=== PATIENT | female | born 1980 | race Caucasian/White ===

== ENCOUNTER 2018-02-19 06:47 | Day surgery (SDC) | payer BC ==
[~2018-02-19 06:47] MED LIST: Lactated Ringers 1,000 ML IV SCH; Sodium Chloride 0.9% 10 ML Syringe FLUSH PRN
--- NOTE | 2018-02-19 08:14 | PCM.HPR ---
H & P Addendum review - H & P Addendum Review Date of Original H & P: 02/02/18 Date Reviewed: 02/19/18 Time Reviewed: 08:00 Patient was Examined: No Changes
[2018-02-19] MEDS ORDERED: fentaNYL 100 MCG/2 ML SDV IV ONE (08:24)
[2018-02-19] MEDS ORDERED: Propofol 200 MG/20 ML SDV IV ONE (08:24)
[2018-02-19] MEDS ORDERED: Ondansetron 4 MG/2 ML SDV IVPUSH ONE (08:24)
[2018-02-19] MEDS ORDERED: Lactated Ringers 1,000 ML IV ONE (08:24)
[2018-02-19] MEDS ORDERED: Midazolam 1 MG/ML 2 ML SDV IV ONE (08:24)
[2018-02-19] MEDS ORDERED: Rocuronium 100 MG/10 ML MDV IV ONE (08:24)
[2018-02-19] MEDS ORDERED: Ketorolac 30 MG/ML SDV IVPUSH ONE (08:24)
--- NOTE | 2018-02-19 09:05 | PCM.OPNOTE ---
- General Post-Op/Procedure Note Date of Surgery/Procedure: 02/19/18 Operative Procedure(s): Lap Angela Pre Op Diagnosis: Symptomatic Cholelithiasis Post-Op Diagnosis: Same Anesthesia Technique: General ET Tube Primary Surgeon: Diego Pardo Pathology: Gallbladder EBL in mLs: 5 Complications: None Condition: Good
[2018-02-19] MEDS ORDERED: Acetaminophen/HYDROcodone 325-5 MG Tab PO PRN (09:07)
[2018-02-19] MEDS ORDERED: Morphine 2 MG/ML Syringe IVPUSH PRN (09:07)
[2018-02-19] MEDS ORDERED: Alum Hydroxide/Mag Hydroxide 15 ML, Lidocaine 2% 15 ML PO ONE ×2 (10:51)
--- NOTE | 2018-02-19 11:49 | OR ---
DATE OF OPERATION: 02/19/2018 SURGEON: Diego Pardo MD PREOPERATIVE DIAGNOSIS: Symptomatic cholelithiasis. POSTOPERATIVE DIAGNOSIS: Symptomatic cholelithiasis. PROCEDURE: Laparoscopic cholecystectomy. ANESTHESIA: General. DESCRIPTION OF PROCEDURE: The patient was brought to the operating room, where general endotracheal anesthesia was administered. Time-out was performed. The abdomen was prepped with ChloraPrep and draped sterilely. An infraumbilical incision was made and extended into the peritoneal cavity without difficulty. The Davida cannula was introduced and pneumoperitoneum obtained. The remaining three 5 mm ports were placed in the usual positions. General exploration revealed the surfaces of the stomach, gallbladder, bowel, and omentum to be normal in appearance. The gallbladder was grasped and retracted cephalad. Cystic duct and cystic artery were dissected free without difficulty. Each of these structures were doubly clipped proximally and once distally and then transected. The gallbladder was removed from the bed of the liver without difficulty. The gallbladder was brought out through the umbilical site. The right upper quadrant was irrigated and inspected, and clips were all in place. Hemostasis was assured. Ports were removed under direct vision and remained hemostatic. Umbilical fascia was closed with [id number] #0 Vicryl. Skin was closed with #4-0 Vicryl subcuticular sutures. Benzoin and Steri-Strips were placed and Band-Aids applied. The patient tolerated the procedure well. Estimated blood losswas 5 mL. She returned to Postanesthesia in a stable condition. /[id number] CHRIS/IVAN
[2018-02-19 14:04] VITALS: BP 103/60
== END 2018-02-19 11:35 | disposition home or self-care (01) ==
LOC: FB.SDS 06:47
PROVIDERS: ATTEND Surgery
DX: K80.10 Calculus of gallbladder with chronic cholecystitis without obstruction (principal); Z79.899 Other long term (current) drug therapy
CPT/HCPCS: 47562; 81025; 88304; A9270; J1885; J2250; J2405; J2704; J3010; J7120